=== PATIENT | male | born 1980 | race African-American/Black ===

== ENCOUNTER 2018-12-19 17:51 | Emergency (ER) | payer OTHER ==
[~2018-12-19] VITALS: Ht 170.2 cm; Wt 81.8 kg
[2018-12-19 20:02] VITALS: BP 111/79
== END 2018-12-19 20:00 | disposition left against medical advice (07) ==
LOC: EMS 17:55
DX: F32.9 Major depressive disorder, single episode, unspecified (principal); Z53.21 Procedure and treatment not carried out due to patient leaving prior to being seen by health care provider

== ENCOUNTER 2019-01-20 16:06 | Inpatient (IN) | payer MEDICAID, OTHER ==
[~2019-01-20] VITALS: Ht 175.3 cm; Wt 90.2 kg
[2019-01-20 16:55] LABS: BASOPHILS % (AUTO) 0.5 % (0.0-2.0); EOSINOPHILS % (AUTO) 3.3 % (1.0-6.0); HEMATOCRIT 42.8 % (41-53); HEMOGLOBIN 14.5 g/dL (13.5-17.5); LYMPHOCYTES # (AUTO) 3.4 K/uL (1.0-4.8); LYMPHOCYTES % (AUTO) 38.3 % (22.0-44.0); MEAN CORPUSCULAR HEMOGLOBIN 29.6 pg (26.0-34.0); MEAN CORPUSCULAR VOLUME 87 fL (80-100); MONOCYTES # (AUTO) 0.6 K/uL (0.1-1.0); MONOCYTES % (AUTO) 7.1 % (2.0-9.0); NEUTROPHILS # (AUTO) 4.5 K/uL (1.8-7.7); NEUTROPHILS % (AUTO) 50.8 % (40.0-70.0); PLATELET COUNT (AUTO) 369 K/uL (150-450); RED BLOOD CELL COUNT(AUTO) 4.92 MIL/uL (4.50-5.90); RED CELL DISTRIBUTION WIDTH 13.8 % (11.5-14.5)
[2019-01-20 17:08] LABS: ANION GAP 11 mmol/L (8-16); CALCIUM, TOTAL 8.2 mg/dL (8.8-10.5); CARBON DIOXIDE 28 mmol/L (22-29); CHLORIDE 106 mmol/L (98-107); CREATININE 1.19 mg/dL (0.60-1.30); GLOMERULAR FILTR. RATE CALC > 60 mL/min (>60); GLUCOSE,RANDOM 108 mg/dL (70-110); POTASSIUM 3.6 mmol/L (3.5-5.1); SODIUM SERUM 145 mmol/L (136-145); UREA NITROGEN, BLOOD 14 mg/dL (7-18)
[2019-01-20 17:15] LABS: ALANINE AMINOTRANSFERASE 42 U/L (12-78); ALBUMIN 3.3 g/dL (3.4-5.0); ALKALINE PHOSPHATASE 115 U/L (46-116); ASPARTATE AMINOTRANSFERASE 32 U/L (15-37); BILIRUBIN,TOTAL 0.2 mg/dL (0.1-1.0); TOTAL PROTEIN, SERUM 6.9 g/dL (6.4-8.2)
[2019-01-20] MEDS ORDERED: HALOPERIDOL 5 MG TABLET PO PRN (18:30)
[2019-01-20] MEDS ORDERED: ZOLPIDEM TARTRATE 10 MG TABLET PO PRN (18:30)
[2019-01-20 18:45] LABS: AMPHET/METH SCREEN,URINE POSITIVE (NEGATIVE); BARBITURATE SCREEN, URINE NEGATIVE (NEGATIVE); BENZODIAZEPINES SCREEN,URINE NEGATIVE (NEGATIVE); CANNABINOID SCREEN,URINE NEGATIVE (NEGATIVE); COCAINE SCREEN,URINE NEGATIVE (NEGATIVE); METHADONE SCREEN, URINE NEGATIVE (NEGATIVE); OPIATE SCREEN,URINE NEGATIVE (NEGATIVE)
[2019-01-20 18:46] LABS: PHENCYCLIDINE SCREEN,URINE NEGATIVE (NEGATIVE)
[2019-01-20 20:13] VITALS: BP 127/89
[2019-01-21 06:14] VITALS: BP 121/77
[2019-01-21 06:34] LABS: CHOL/HDL RATIO 2.9 (4.2-7.3)
[2019-01-21 08:19] LABS: APPEARANCE,URINE CLEAR (CLEAR); BILIRUBIN,URINE NEGATIVE (NEGATIVE); GLUCOSE, URINE (UA) NEGATIVE (NEGATIVE); KETONES,URINE NEGATIVE (NEGATIVE); LEUKOCYTE ESTERASE ,URINE NEGATIVE (NEGATIVE); NITRATE,URINE NEGATIVE (NEGATIVE); OCCULT BLOOD,URINE NEGATIVE (NEGATIVE); PH,URINE 5.5 (5.0-8.0); PROTEIN,URINE NEGATIVE (NEGATIVE); UROBILINOGEN,URINE 0.2 mg/dL (<=1.0)
[2019-01-21 09:36] VITALS: BP 121/90
[2019-01-21] MEDS: NICOTINE 21 MG/24 HOUR PATCH TD SCH (10:24)
[2019-01-21] MEDS: LORazepam 2 MG TABLET PO PRN (11:16)
[2019-01-21 18:00] VITALS: BP 136/70
[2019-01-22] MEDS: LORazepam 2 MG TABLET PO PRN ×2 (08:08→20:26)
[2019-01-22] MEDS: SERTRALINE HCL 50 MG TABLET PO SCH (08:08)
[2019-01-22] MEDS: NICOTINE 21 MG/24 HOUR PATCH TD SCH (08:09)
[2019-01-22 11:02] VITALS: BP 132/75
[2019-01-22 16:23] VITALS: BP 126/77
[2019-01-23] MEDS: SERTRALINE HCL 50 MG TABLET PO SCH (08:53)
[2019-01-23] MEDS: NICOTINE 21 MG/24 HOUR PATCH TD SCH (09:00)
[2019-01-23 09:19] VITALS: BP 147/89
[2019-01-23] MEDS: LORazepam 2 MG TABLET PO PRN (11:11)
[2019-01-23] MEDS ORDERED: SERT50TA12 PO (12:21)
== END 2019-01-23 14:30 | disposition home or self-care (01) | DRG 751 ==
LOC: EMS 16:08 → 3EX 18:59
PROVIDERS: ADMIT Psychiatry & Neurology Psychiatry; ATTEND Psychiatry & Neurology Psychiatry
DX: F32.2 Major depressive disorder, single episode, severe without psychotic features (principal); R45.851 Suicidal ideations; F15.10 Other stimulant abuse, uncomplicated; F17.210 Nicotine dependence, cigarettes, uncomplicated; F41.9 Anxiety disorder, unspecified; Z79.899 Other long term (current) drug therapy; Z83.3 Family history of diabetes mellitus; Z59.0 Homelessness
CPT/HCPCS: 80074; 93005; 99406; G0378; G0480